=== PATIENT | male | born 1945 | race Caucasian/White ===

== ENCOUNTER 2016-10-20 12:25 | Observation (INO) | payer MEDICARE, OTHER ==
[~2016-10-20] VITALS: Ht 195.8 cm; Wt 186.8 kg
[~2016-10-20 12:25] MED LIST: ALEVE; ALLEGRA60 MG PO; AMLOPIDINE; ASPI325T6 PO; BACTRIM 400 MG-1 TAB PO; COUMADIN 5MG5 MG/TAB PO; COZAAR 50MG50 MG/TAB PO; DESYREL 100MG100 MG PO; FLOMAX; FLOMAX 0.40.4 MG/CAP PO; FOLIC ACID0.4 MG PO; HALDOL5 MG PO; HCTZ; HCTZ 25MG TAB25 MG PO; IRON324 M1 PO; LORTAB; NORCO 325 MG-101 TAB; NORCO 325 MG-101 TAB PO; NORCO 325 MG-51 TAB PO; NORCO 325 MG-7.1 TAB PO; OXY IR5 MG; OXY IR5 MG PO; PLAQUENIL 200M200 MG PO; ROXICODONE 55 MG/TAB PO; VITAMIN C500 MG; ZYRTEC 10MG10 MG PO; [UNRECOGNIZED DRUG - OTHER]
[2016-10-20 12:57] LABS: BASO % 0.7 % (0.0-2.0); EOS # 0.2 (0.0-0.7); EOS % 2.6 % (0-4.0); GRAN # 3.7 (1.4-6.5); HEMATOCRIT 45.3 % (42.0-52.0); HEMOGLOBIN 15.5 g/dl (13.5-18.0); INR 1.2 (0.8-3.0); LYMPH # 1.4 (1.2-3.4); LYMPH % 24.6 % (20.0-51.0); MEAN CELL VOLUME 90 fl (80.0-100.0); MEAN CORPUSCULAR HEMOGLOBIN 31 pg (27.0-31.0); MEAN CORPUSCULAR HGB CONC 34 g/dl (33.0-37.0); MEAN PLATELET VOLUME 10.9 fl (7.4-10.4); MONO # 0.5 (0.1-0.6); MONO % 8.9 % (1.7-9.3); PLATELET COUNT 131 K/mm3 (130-400); PROTHROMBIN TIME 13.1 SECONDS (9.7-12.8); RED BLOOD COUNT 5.03 M/mm3 (4.20-5.60); REDCELL DISTRIBUTION WIDTH-CV 12.7 % (11.5-14.5); WHITE BLOOD COUNT 5.9 K/mm3 (4.8-10.8)
[2016-10-20 13:00] LABS: PARTIAL THROMBOPLASTIN TIME 32.5 SECONDS (26.0-37.0)
[2016-10-20 13:04] LABS: ADJUSTED CALCIUM 9.5 mg/dL (8.4-10.2); ALANINE AMINOTRANSFERASE 45 U/L (21-72); ALBUMIN 4.1 gm/dL (3.5-5.0); ALKALINE PHOSPHATASE 83 U/L (50-136); ANION GAP 9 mmol/L (7-16); BILIRUBIN,TOTAL 1.5 mg/dL (0.0-1.0); BLOOD UREA NITROGEN 18 mg/dL (9-20); CALCIUM 9.6 mg/dL (8.4-10.2); CARBON DIOXIDE 30 mmol/L (22-30); CHLORIDE 99 mmol/L (98-107); GLUCOSE 102 mg/dL (74-106); LIPASE 74 U/L (23-300); POTASSIUM 4.2 mmol/L (3.4-5.0); SODIUM 138 mmol/L (137-145); TOTAL PROTEIN 7.8 gm/dL (6.4-8.2)
[2016-10-20 13:15] LABS: B-TYPE NATRIURETIC PEPTIDE 36 pg/mL (0-125); TROPONIN-I < 0.012 ng/mL (0.000-0.034)
[2016-10-20 16:42] VITALS: BP 137/74; PULSE 54; TEMP 97.7
[2016-10-20 19:32] LABS: AMYLASE 103 U/L (30-110)
[2016-10-20 19:34] VITALS: BP 144/80; PULSE 58; TEMP 97.6
[2016-10-20 19:43] LABS: BILIRUBIN,DIRECT 0.5 mg/dL (0.0-0.4)
[2016-10-21 00:04] VITALS: BP 119/55; PULSE 54; TEMP 97.8
[2016-10-21 04:00] VITALS: BP 113/55; PULSE 54; TEMP 97.7
[2016-10-21 05:45] VITALS: BP 113/55; PULSE 54
[2016-10-21 07:37] LABS: BASO % 0.3 % (0.0-2.0); EOS # 0.3 (0.0-0.7); EOS % 3.9 % (0-4.0); GRAN # 3.6 (1.4-6.5); GRAN % 55.8 % (42.2-75.2); HEMATOCRIT 46.3 % (42.0-52.0); HEMOGLOBIN 15.4 g/dl (13.5-18.0); LYMPH # 1.9 (1.2-3.4); MEAN CELL VOLUME 91 fl (80.0-100.0); MEAN CORPUSCULAR HEMOGLOBIN 30 pg (27.0-31.0); MEAN CORPUSCULAR HGB CONC 33 g/dl (33.0-37.0); MEAN PLATELET VOLUME 11.5 fl (7.4-10.4); MONO # 0.6 (0.1-0.6); MONO % 9.7 % (1.7-9.3); PLATELET COUNT 138 K/mm3 (130-400); RED BLOOD COUNT 5.08 M/mm3 (4.20-5.60); REDCELL DISTRIBUTION WIDTH-CV 12.7 % (11.5-14.5); WHITE BLOOD COUNT 6.4 K/mm3 (4.8-10.8)
[2016-10-21 07:41] LABS: CALCIUM 9.4 mg/dL (8.4-10.2); CREATININE, serum 0.98 mg/dL (0.66-1.25); POTASSIUM 3.9 mmol/L (3.4-5.0)
[2016-10-21 07:54] VITALS: BP 135/71; PULSE 62; TEMP 98.4
[2016-10-21 09:46] VITALS: BP 162/87; PULSE 81
[2016-10-21 09:50] VITALS: BP 177/78; PULSE 75
[2016-10-21] MEDS ORDERED: ASPIRIN 81M81 MG/TA2 PO (11:30)
[2016-10-21] MEDS ORDERED: ASPIRIN E.C. 8181 MG PO (11:53)
== END 2016-10-21 12:43 | disposition home health service (06) ==
LOC: COL.ER 12:25 → MEDICAL 14:29
PROVIDERS: Emergency Medicine; Internal Medicine
DX: I10 Essential (primary) hypertension (principal); R07.9 Chest pain, unspecified; M32.9 Systemic lupus erythematosus, unspecified; M25.511 Pain in right shoulder; Z85.51 Personal history of malignant neoplasm of bladder; E66.01 Morbid (severe) obesity due to excess calories
CPT/HCPCS: 99239; A9502; G0378; J1650; J2785; J7030; J7040

== ENCOUNTER 2017-02-05 20:37 | Inpatient (IN) | payer MEDICARE, OTHER ==
[~2017-02-05] VITALS: Ht 185.4 cm; Wt 180.0 kg
[~2017-02-05 20:37] MED LIST changes: +ASPIRIN 81M81 MG/TA2 PO; +ASPIRIN E.C. 8181 MG PO
[2017-02-05 21:22] LABS: BASO % 0.3 % (0.0-2.0); EOS # 0.1 (0.0-0.7); EOS % 0.5 % (0-4.0); GRAN # 12.9 (1.4-6.5); GRAN % 86.5 % (42.2-75.2); HEMATOCRIT 46.3 % (42.0-52.0); HEMOGLOBIN 15.6 g/dl (13.5-18.0); LYMPH # 1.1 (1.2-3.4); LYMPH % 7.3 % (20.0-51.0); MEAN CELL VOLUME 91 fl (80.0-100.0); MEAN CORPUSCULAR HEMOGLOBIN 31 pg (27.0-31.0); MEAN CORPUSCULAR HGB CONC 34 g/dl (33.0-37.0); MEAN PLATELET VOLUME 11.3 fl (7.4-10.4); MONO # 0.8 (0.1-0.6); MONO % 5.1 % (1.7-9.3); PLATELET COUNT 143 K/mm3 (130-400); REDCELL DISTRIBUTION WIDTH-CV 12.8 % (11.5-14.5)
[2017-02-05 21:41] LABS: C-REACTIVE PROTEIN 1.5 mg/dL (0.0-0.9); CALCIUM 9.4 mg/dL (8.4-10.2); POTASSIUM 4.1 mmol/L (3.4-5.0)
[2017-02-05 22:13] LABS: ERYTHROCYTE SEDIMENTATION RATE 6 mm/hr (0-30)
[2017-02-05] MEDS ORDERED: OXY IR5 MG PO (23:20)
[2017-02-05] MEDS ORDERED: PLAQUENIL 200M200 MG PO (23:22)
[2017-02-05 23:26] LABS: URIC ACID 6.7 mg/dL (3.5-8.5)
[2017-02-05 23:43] VITALS: BP 114/57; PULSE 69; TEMP 98.9
[2017-02-06 02:28] VITALS: BP 137/61; PULSE 65; TEMP 99
[2017-02-06 07:38] LABS: BASO % 0.2 % (0.0-2.0); EOS # 0.1 (0.0-0.7); EOS % 1.4 % (0-4.0); GRAN # 7.3 (1.4-6.5); GRAN % 75.1 % (42.2-75.2); HEMOGLOBIN 13.9 g/dl (13.5-18.0); LYMPH # 1.3 (1.2-3.4); LYMPH % 13.7 % (20.0-51.0); MEAN CELL VOLUME 92 fl (80.0-100.0); MEAN CORPUSCULAR HEMOGLOBIN 31 pg (27.0-31.0); MEAN CORPUSCULAR HGB CONC 33 g/dl (33.0-37.0); MEAN PLATELET VOLUME 11.3 fl (7.4-10.4); MONO # 0.9 (0.1-0.6); MONO % 9.2 % (1.7-9.3); PLATELET COUNT 122 K/mm3 (130-400); RED BLOOD COUNT 4.56 M/mm3 (4.20-5.60); REDCELL DISTRIBUTION WIDTH-CV 13.1 % (11.5-14.5); WHITE BLOOD COUNT 9.7 K/mm3 (4.8-10.8)
[2017-02-06 07:42] LABS: CALCIUM 8.8 mg/dL (8.4-10.2); CREATININE, serum 0.98 mg/dL (0.66-1.25); POTASSIUM 3.7 mmol/L (3.4-5.0)
[2017-02-06 08:00] VITALS: BP 137/59; PULSE 57; TEMP 97.9
[2017-02-06] MEDS ORDERED: HCTZ 25MG TAB25 MG PO (09:26)
[2017-02-06 11:17] VITALS: BP 145/62; PULSE 58; TEMP 97.9
[2017-02-06 15:08] VITALS: BP 132/61; PULSE 65; TEMP 97.9
[2017-02-06 19:31] VITALS: BP 140/61; PULSE 63; TEMP 97.6
[2017-02-06 23:22] VITALS: BP 117/80; PULSE 63; TEMP 98.7
[2017-02-07 03:26] VITALS: BP 118/70; PULSE 58; TEMP 98.1
[2017-02-07 07:21] VITALS: BP 162/79; PULSE 67; TEMP 98.2
[2017-02-07 11:18] VITALS: BP 143/65; PULSE 63; TEMP 98.3
[2017-02-07 16:30] VITALS: BP 126/59; PULSE 57; TEMP 98.2
[2017-02-07 20:03] VITALS: BP 117/60; PULSE 63; TEMP 98
[2017-02-08] VITALS (7 sets, daily range): BP systolic 96–145; BP diastolic 29–82; PULSE 57–64; TEMP 97.5–98.7
[2017-02-09 04:13] VITALS: BP 127/62; PULSE 59; TEMP 98.1
[2017-02-09 06:48] LABS: BASO % 0.4 % (0.0-2.0); EOS # 0.2 (0.0-0.7); EOS % 2.8 % (0-4.0); GRAN # 4.5 (1.4-6.5); HEMOGLOBIN 13.8 g/dl (13.5-18.0); LYMPH # 1.4 (1.2-3.4); LYMPH % 21.3 % (20.0-51.0); MEAN CELL VOLUME 93 fl (80.0-100.0); MEAN CORPUSCULAR HEMOGLOBIN 31 pg (27.0-31.0); MEAN CORPUSCULAR HGB CONC 33 g/dl (33.0-37.0); MEAN PLATELET VOLUME 11.5 fl (7.4-10.4); MONO # 0.6 (0.1-0.6); MONO % 9.2 % (1.7-9.3); PLATELET COUNT 146 K/mm3 (130-400); RED BLOOD COUNT 4.53 M/mm3 (4.20-5.60); REDCELL DISTRIBUTION WIDTH-CV 13.1 % (11.5-14.5); WHITE BLOOD COUNT 6.8 K/mm3 (4.8-10.8)
[2017-02-09 07:44] LABS: CALCIUM 8.5 mg/dL (8.4-10.2); CREATININE, serum 1.07 mg/dL (0.66-1.25); POTASSIUM 3.9 mmol/L (3.4-5.0)
[2017-02-09] MEDS ORDERED: DOXYCYCLINE HY100 MG PO (07:57)
[2017-02-09] MEDS ORDERED: BACTRIM DS 8001 TAB PO (08:24)
[2017-02-09] MEDS ORDERED: CIPRO 500MG TA500 MG PO (08:27)
[2017-02-09 08:34] VITALS: BP 136/65; PULSE 60; TEMP 98.1
== END 2017-02-09 10:10 | disposition home or self-care (01) | DRG 603 ==
LOC: COL.ER 20:37 → MEDICAL 21:57
PROVIDERS: Emergency Medicine; Family Medicine
DX: L03.116 Cellulitis of left lower limb (principal); Z68.43 Body mass index [BMI] 50.0-59.9, adult; I10 Essential (primary) hypertension; M32.9 Systemic lupus erythematosus, unspecified; Z96.653 Presence of artificial knee joint, bilateral; E66.01 Morbid (severe) obesity due to excess calories; E11.65 Type 2 diabetes mellitus with hyperglycemia; L43.9 Lichen planus, unspecified; W19.XXXD Unspecified fall, subsequent encounter; Z87.891 Personal history of nicotine dependence; Z85.51 Personal history of malignant neoplasm of bladder
CPT/HCPCS: 99222-AI; 99232-AI; 99239; G0378; J0690; J1170; J1650; J1885; J2543; J3370; J7030; J7040; J7050

== ENCOUNTER 2018-02-04 08:36 | Inpatient (IN) | payer MEDICARE, OTHER ==
[~2018-02-04] VITALS: Ht 182.9 cm; Wt 174.1 kg
[~2018-02-04 08:36] MED LIST changes: +BACTRIM DS 8001 TAB PO; +CIPRO 500MG TA500 MG PO; +DOXYCYCLINE HY100 MG PO
[2018-02-04 09:18] LABS: HEMATOCRIT 44.9 % (42.0-52.0); HEMOGLOBIN 15.9 g/dl (13.5-18.0); MEAN CELL VOLUME 87 fl (80.0-100.0); MEAN CORPUSCULAR HEMOGLOBIN 31 pg (27.0-31.0); MEAN CORPUSCULAR HGB CONC 35 g/dl (33.0-37.0); MEAN PLATELET VOLUME 11.4 fl (7.4-10.4); PLATELET COUNT 135 K/mm3 (130-400); RED BLOOD COUNT 5.16 M/mm3 (4.20-5.60); REDCELL DISTRIBUTION WIDTH-CV 12.7 % (11.5-14.5)
[2018-02-04 09:33] LABS: ALBUMIN 3.6 gm/dL (3.5-5.0); BILIRUBIN,TOTAL 2.8 mg/dL (0.0-1.0); CALCIUM 8.7 mg/dL (8.4-10.2); CREATININE, serum 1.24 mg/dL (0.66-1.25); TOTAL PROTEIN 8.1 gm/dL (6.4-8.2)
[2018-02-04 10:01] LABS: TROPONIN-I 0.038 ng/mL (0.000-0.034)
[2018-02-04 10:03] LABS: BAND 20 % (0-10); LYMPHOCYTE 4 % (20.0-51.0); METAMYELOCYTE 1 % (0-0); NEUTROPHILS 68 % (42.0-75.2)
[2018-02-04 10:03] LABS: ARTERIAL BLD GAS O2 SATURATION 93.7 % (92-100); ARTERIAL BLD GAS TCO2 CT 31.4; ARTERIAL BLOOD GAS BASE EXCESS 4.7 (-2-2); ARTERIAL BLOOD GAS PCO2 46.3 mmHg (35-45); ARTERIAL BLOOD GAS PO2 66.4 mmHg (80-100); ARTERIAL BLOOD GAS pH 7.43 (7.35-7.45)
[2018-02-04 10:04] LABS: PLATELET ESTIMATE NORMAL (NORMAL)
[2018-02-04 12:51] VITALS: PULSE 88; TEMP 98.5
[2018-02-04 16:06] VITALS: BP 145/69; PULSE 74; TEMP 97.6
[2018-02-04] MEDS ORDERED: NEURONTIN100 MG/CAP PO (17:20)
[2018-02-04 19:48] VITALS: BP 145/73; PULSE 85; TEMP 98.3
[2018-02-04 23:48] VITALS: BP 142/48; PULSE 87; TEMP 99
[2018-02-05 03:32] VITALS: BP 153/68; PULSE 86
[2018-02-05 07:31] LABS: HEMATOCRIT 43.5 % (42.0-52.0); HEMOGLOBIN 14.7 g/dl (13.5-18.0); MEAN CELL VOLUME 90 fl (80.0-100.0); MEAN CORPUSCULAR HEMOGLOBIN 31 pg (27.0-31.0); MEAN CORPUSCULAR HGB CONC 34 g/dl (33.0-37.0); MEAN PLATELET VOLUME 11.8 fl (7.4-10.4); PLATELET COUNT 148 K/mm3 (130-400); RED BLOOD COUNT 4.82 M/mm3 (4.20-5.60)
[2018-02-05 08:04] VITALS: BP 130/71; PULSE 100; TEMP 98.2
[2018-02-05 08:15] LABS: CALCIUM 8.5 mg/dL (8.4-10.2); POTASSIUM 3.6 mmol/L (3.4-5.0)
[2018-02-05 08:53] LABS: BAND 15 % (0-10); LYMPHOCYTE 2 % (20.0-51.0); NEUTROPHILS 81 % (42.0-75.2); PLATELET ESTIMATE NORMAL (NORMAL)
[2018-02-05 13:43] VITALS: BP 134/72; PULSE 80; TEMP 98.4
[2018-02-05 15:42] VITALS: BP 134/68; PULSE 89; TEMP 99.6
[2018-02-05 19:07] VITALS: BP 85/60; PULSE 80; TEMP 98.5
[2018-02-06 00:53] VITALS: BP 136/64; PULSE 81
[2018-02-06 04:09] VITALS: BP 153/71; PULSE 86; TEMP 98.5
[2018-02-06 07:34] LABS: BASO % 0.2 % (0.0-2.0); EOS # 0.1 (0.0-0.7); EOS % 0.6 % (0-4.0); GRAN # 15.3 (1.4-6.5); GRAN % 87.1 % (42.2-75.2); HEMATOCRIT 43.6 % (42.0-52.0); HEMOGLOBIN 14.5 g/dl (13.5-18.0); LYMPH # 0.5 (1.2-3.4); MEAN CELL VOLUME 91 fl (80.0-100.0); MEAN CORPUSCULAR HEMOGLOBIN 30 pg (27.0-31.0); MEAN CORPUSCULAR HGB CONC 33 g/dl (33.0-37.0); MEAN PLATELET VOLUME 11.3 fl (7.4-10.4); MONO # 1.5 (0.1-0.6); MONO % 8.5 % (1.7-9.3); PLATELET COUNT 176 K/mm3 (130-400); RED BLOOD COUNT 4.78 M/mm3 (4.20-5.60); REDCELL DISTRIBUTION WIDTH-CV 13.2 % (11.5-14.5)
[2018-02-06 07:47] LABS: CALCIUM 8.4 mg/dL (8.4-10.2); CREATININE, serum 1.09 mg/dL (0.66-1.25)
[2018-02-06 08:19] VITALS: BP 126/60; PULSE 83; TEMP 98.3
[2018-02-06 11:25] VITALS: BP 93/42; PULSE 75; TEMP 99
[2018-02-06 16:33] VITALS: BP 123/59; PULSE 71; TEMP 99.1
[2018-02-06 19:44] VITALS: BP 151/61; PULSE 81; TEMP 99
[2018-02-07] VITALS (7 sets, daily range): BP systolic 118–158; BP diastolic 54–87; PULSE 62–88; TEMP 98.4–99.5
[2018-02-07 07:11] LABS: HEMOGLOBIN 13.2 g/dl (13.5-18.0); MEAN CELL VOLUME 90 fl (80.0-100.0); MEAN CORPUSCULAR HEMOGLOBIN 30 pg (27.0-31.0); MEAN CORPUSCULAR HGB CONC 34 g/dl (33.0-37.0); MEAN PLATELET VOLUME 11.2 fl (7.4-10.4); PLATELET COUNT 177 K/mm3 (130-400); RED BLOOD COUNT 4.34 M/mm3 (4.20-5.60); REDCELL DISTRIBUTION WIDTH-CV 13.3 % (11.5-14.5)
[2018-02-07 07:32] LABS: CALCIUM 8.6 mg/dL (8.4-10.2); CREATININE, serum 1.04 mg/dL (0.66-1.25)
[2018-02-07 08:55] LABS: BAND 17 % (0-10); EOSINOPHIL 2 % (0-4); LYMPHOCYTE 5 % (20.0-51.0); NEUTROPHILS 72 % (42.0-75.2); PLATELET ESTIMATE NORMAL (NORMAL)
[2018-02-08 04:31] VITALS: BP 128/63; PULSE 50; TEMP 98.7
[2018-02-08 06:46] LABS: HEMATOCRIT 41.9 % (42.0-52.0); MEAN CELL VOLUME 90 fl (80.0-100.0); MEAN CORPUSCULAR HEMOGLOBIN 30 pg (27.0-31.0); MEAN CORPUSCULAR HGB CONC 33 g/dl (33.0-37.0); PLATELET COUNT 209 K/mm3 (130-400); RED BLOOD COUNT 4.66 M/mm3 (4.20-5.60); REDCELL DISTRIBUTION WIDTH-CV 13.4 % (11.5-14.5)
[2018-02-08 07:06] LABS: CREATININE, serum 0.93 mg/dL (0.66-1.25); POTASSIUM 3.7 mmol/L (3.4-5.0)
[2018-02-08 07:35] VITALS: BP 129/58; PULSE 81; TEMP 99.9
[2018-02-08 09:02] LABS: BAND 5 % (0-10); LYMPHOCYTE 6 % (20.0-51.0); NEUTROPHILS 86 % (42.0-75.2)
[2018-02-08] MEDS ORDERED: TYLENOL 325MG325 MG PO (09:03)
[2018-02-08] MEDS ORDERED: PREDNISONE20 MG PO (09:05)
[2018-02-08] MEDS ORDERED: OMNICEF 300MG300 MG PO (09:06)
[2018-02-08] MEDS ORDERED: IPRATROPIUM BROM3 M1 IH (09:08)
[2018-02-08] MEDS ORDERED: OXY IR5 MG PO (11:02)
== END 2018-02-08 11:39 | DRG 871 ==
LOC: COL.ER 08:36 → MEDICAL 11:30
PROVIDERS: Hospitalist; Nurse Practitioner; Nurse Practitioner Family; Physician Assistant
DX: A41.9 Sepsis, unspecified organism (principal); J18.9 Pneumonia, unspecified organism; J69.0 Pneumonitis due to inhalation of food and vomit; Z68.43 Body mass index [BMI] 50.0-59.9, adult; E66.2 Morbid (severe) obesity with alveolar hypoventilation; I10 Essential (primary) hypertension; Z87.891 Personal history of nicotine dependence; L93.0 Discoid lupus erythematosus
CPT/HCPCS: 99223-AI; 99232-AI; 99233-AI; 99239; A9284; J0456; J0696; J1644; J2543; J3010; J7030; J7050; J7512

== ENCOUNTER → 2019-02-05 | Outpatient (CLI) | payer MEDICARE, OTHER ==
[~2019-02-05] MED LIST changes: +IPRATROPIUM BROM3 M1 IH; +NEURONTIN100 MG/CAP PO; +OMNICEF 300MG300 MG PO; +PREDNISONE20 MG PO; +TYLENOL 325MG325 MG PO
[2019-02-05 13:18] LABS: BASO % 0.3 % (0.0-2.0); EOS # 0.1 (0.0-0.7); EOS % 1.9 % (0-4.0); GRAN # 4.8 (1.4-6.5); GRAN % 69.4 % (42.2-75.2); HEMATOCRIT 44.5 % (42.0-52.0); HEMOGLOBIN 14.9 g/dl (13.5-18.0); LYMPH # 1.1 (1.2-3.4); LYMPH % 15.5 % (20.0-51.0); MEAN CELL VOLUME 92 fl (80.0-100.0); MEAN CORPUSCULAR HEMOGLOBIN 31 pg (27.0-31.0); MEAN CORPUSCULAR HGB CONC 34 g/dl (33.0-37.0); MEAN PLATELET VOLUME 10.7 fl (7.4-10.4); MONO # 0.9 (0.1-0.6); MONO % 12.8 % (1.7-9.3); PLATELET COUNT 136 K/mm3 (130-400); RED BLOOD COUNT 4.86 M/mm3 (4.20-5.60); REDCELL DISTRIBUTION WIDTH-CV 13.1 % (11.5-14.5)
== END ==
LOC: COL.LAB 12:53
PROVIDERS: Physician Assistant
DX: R03.1 Nonspecific low blood-pressure reading (principal)

== ENCOUNTER → 2019-02-05 | Outpatient (CLI) | payer MEDICARE, OTHER | LOC: COL.VAS 14:41 | DX: M79.89 Other specified soft tissue disorders (principal); R79.89 Other specified abnormal findings of blood chemistry ==

== ENCOUNTER → 2020-11-09 | Outpatient (CLI) | payer MEDICARE ==
[~2020-11-09] MED LIST changes: +AMOXICILLIN 8751 TAB PO; +PROVENTIL0.09 MG/A1 IH; +ZITHROMAX Z PA250 MG PO
== END ==
LOC: MHCPAIN 10:23
DX: M47.817 Spondylosis without myelopathy or radiculopathy, lumbosacral region (principal); M54.5 Low back pain; M53.3 Sacrococcygeal disorders, not elsewhere classified; G89.29 Other chronic pain
CPT/HCPCS: G0463

== ENCOUNTER → 2020-11-19 | Outpatient (CLI) | payer MEDICARE | LOC: MHCPAIN 09:26 | DX: M47.817 Spondylosis without myelopathy or radiculopathy, lumbosacral region (principal); M54.5 Low back pain ==

== ENCOUNTER 2020-12-11 13:17 | Emergency (ER) | payer MEDICARE, OTHER ==
[2008-06-07 22:26] VITALS: BP 133/88
[~2020-12-11] VITALS: Ht 182.9 cm; Wt 177.3 kg
[~2020-12-11 13:17] MED LIST changes: -AMOXICILLIN 8751 TAB PO; -PROVENTIL0.09 MG/A1 IH; -ZITHROMAX Z PA250 MG PO
[2020-12-11 13:27] VITALS: TEMP 98.4
[2020-12-11 13:53] LABS: BASO % 0.2 % (0.0-2.0); EOS # 0.1 (0.0-0.7); EOS % 0.9 % (0-4.0); GRAN # 7.8 (1.4-6.5); GRAN % 78.5 % (42.2-75.2); HEMOGLOBIN 15.2 g/dl (13.5-18.0); LYMPH # 0.7 (1.2-3.4); LYMPH % 7.3 % (20.0-51.0); MEAN CELL VOLUME 94 fl (80.0-100.0); MEAN CORPUSCULAR HEMOGLOBIN 31 pg (27.0-31.0); MEAN CORPUSCULAR HGB CONC 33 g/dl (33.0-37.0); MONO # 1.3 (0.1-0.6); MONO % 12.7 % (1.7-9.3); PLATELET COUNT 142 K/mm3 (130-400); RED BLOOD COUNT 4.92 M/mm3 (4.20-5.60); REDCELL DISTRIBUTION WIDTH-CV 12.9 % (11.5-14.5)
[2020-12-11 14:06] LABS: ALANINE AMINOTRANSFERASE 22 U/L (4-49); ALKALINE PHOSPHATASE 85 U/L (50-136); ANION GAP 6 mmol/L (7-16); AST,SGOT 32 U/L (15-37); BILIRUBIN,TOTAL 3.7 mg/dL (0.0-1.0); BLOOD UREA NITROGEN 18 mg/dL (9-20); CALCIUM 9.2 mg/dL (8.4-10.2); CARBON DIOXIDE 33 mmol/L (22-30); CHLORIDE 97 mmol/L (98-107); CREATININE, serum 1.12 (0.66-1.25); GLUCOSE 115 mg/dL (74-106); POTASSIUM 4.3 mmol/L (3.4-5.0); SODIUM 135 mmol/L (137-145); TOTAL PROTEIN 8.3 gm/dL (6.4-8.2)
[2020-12-11 14:20] LABS: TROPONIN-I < 0.012 ng/mL (0.000-0.035)
[2020-12-11 16:50] VITALS: BP 105/59; PULSE 81
[2020-12-11] MEDS ORDERED: ZITHROMAX Z PA250 MG PO (17:11)
[2020-12-11] MEDS ORDERED: AMOXICILLIN 8751 TAB PO (17:11)
[2020-12-11] MEDS ORDERED: PROVENTIL0.09 MG/A1 IH (17:11)
== END 2020-12-11 17:22 | disposition home or self-care (01) ==
LOC: COL.ER 13:17
PROVIDERS: Emergency Medicine
DX: J18.9 Pneumonia, unspecified organism (principal); I10 Essential (primary) hypertension; N40.0 Benign prostatic hyperplasia without lower urinary tract symptoms; Z79.51 Long term (current) use of inhaled steroids; Z79.82 Long term (current) use of aspirin
CPT/HCPCS: Q9967

== ENCOUNTER → 2021-01-04 | Outpatient (CLI) | payer MEDICARE, OTHER ==
[~2021-01-04] MED LIST changes: +AMOXICILLIN 8751 TAB PO; +PROVENTIL0.09 MG/A1 IH; +ZITHROMAX Z PA250 MG PO
== END ==
LOC: MHCPAIN 12:09
DX: M47.817 Spondylosis without myelopathy or radiculopathy, lumbosacral region (principal); M54.5 Low back pain; M53.3 Sacrococcygeal disorders, not elsewhere classified; G89.29 Other chronic pain
CPT/HCPCS: G0463

== ENCOUNTER → 2021-01-25 | Outpatient (CLI) | payer MEDICARE, OTHER | LOC: MHCPAIN 11:50 | DX: M47.817 Spondylosis without myelopathy or radiculopathy, lumbosacral region (principal) | CPT/HCPCS: G0463; J1100; J2250; J3010 ==

== ENCOUNTER → 2021-01-28 | Outpatient (CLI) | payer MEDICARE, OTHER | LOC: MHCPAIN 13:02 | DX: M47.817 Spondylosis without myelopathy or radiculopathy, lumbosacral region (principal); M54.5 Low back pain; M53.3 Sacrococcygeal disorders, not elsewhere classified | CPT/HCPCS: J1100; J2250; J3010 ==

== ENCOUNTER → 2021-03-23 | Outpatient (CLI) | payer MEDICARE, OTHER | LOC: MHCPAIN 08:44 | DX: M47.816 Spondylosis without myelopathy or radiculopathy, lumbar region (principal); M53.3 Sacrococcygeal disorders, not elsewhere classified; M54.5 Low back pain | CPT/HCPCS: G0463 ==

== ENCOUNTER 2022-10-30 23:22 | Emergency (ER) | payer MEDICARE, OTHER ==
[~2022-10-30] VITALS: Ht 182.9 cm; Wt 122.7 kg
[2022-10-30 23:26] VITALS: TEMP 98.1
[2022-10-30 23:54] LABS: BASO % 0.3 % (0.0-2.0); EOS # 0.1 K/mm3 (0.0-0.7); EOS % 0.8 % (0.0-4.0); GRAN # 5.8 K/mm3 (1.4-6.5); GRAN % 72.3 % (42.2-75.2); HEMATOCRIT 44.5 % (42.0-52.0); HEMOGLOBIN 15.8 g/dl (13.5-18.0); LYMPH # 1.3 K/mm3 (1.2-3.4); LYMPH % 16.8 % (20.0-51.0); MEAN CELL VOLUME 90 fl (80.0-100.0); MEAN CORPUSCULAR HEMOGLOBIN 32 pg (27-31); MEAN CORPUSCULAR HGB CONC 36 g/dl (33.0-37.0); MEAN PLATELET VOLUME 10.9 fl (7.4-10.4); MONO # 0.8 K/mm3 (0.1-0.6); MONO % 9.5 % (1.7-9.3); PLATELET COUNT 146 K/mm3 (130-400); RED BLOOD COUNT 4.97 M/mm3 (4.20-5.60); REDCELL DISTRIBUTION WIDTH-CV 12.5 % (11.5-14.5)
[2022-10-31 00:17] LABS: ALBUMIN 3.5 gm/dL (3.4-4.8); BILIRUBIN,TOTAL 1.8 mg/dL (0.2-1.2); CALCIUM 9.2 mg/dL (8.4-10.2); CREATININE, serum 0.84 mg/dL (0.72-1.25); POTASSIUM 3.5 mmol/L (3.5-4.5); TOTAL PROTEIN 6.9 gm/dL (6.2-8.1)
[2022-10-31] MEDS ORDERED: ZOFRAN ODT4 MG PO (01:35)
[2022-10-31 02:05] VITALS: BP 138/90; PULSE 70
== END 2022-10-31 02:10 | disposition home or self-care (01) ==
LOC: COL.ER 23:22
PROVIDERS: Personal Emergency Response Attendant
DX: R19.7 Diarrhea, unspecified (principal); E86.0 Dehydration
CPT/HCPCS: J2405; J7030